=== PATIENT | female | born 1960 | race Caucasian/White ===

== ENCOUNTER → 2021-01-14 | Outpatient (CLI) | payer OTHER ==
--- NOTE | 2021-01-15 09:09 | RAD ---
EXAM: XR KNEE 1-2 VIEWS, XR KNEE_AP BILAT STANDING 01/14/2021 3:21 PM CLINICAL INDICATION: Bilateral knee pain COMPARISON: None TECHNIQUE: Standing AP bilateral view the knees, and lateral and sunrise views of the right and left knee. FINDINGS: Right knee: No acute fracture or malalignment. There is mild tricompartmental joint space narrowing w ith small osteophytes. No joint effusion. Left knee: No acute fracture or malalignment. There is mild tricompartmental joint space narrowing wi th small osteophytes. No joint effusion. IMPRESSION: Mild tricompartmental osteoarthrosis of the knees. Electronically signed by: Eda Matthews MD (01/15/2021 9:06 AM) [id number]
== END ==
LOC: RAD 15:06
PROVIDERS: ATTEND Physician Assistant
DX: M17.0 Bilateral primary osteoarthritis of knee (principal); M25.762 Osteophyte, left knee; M25.761 Osteophyte, right knee
CPT/HCPCS: 73560; 73565